=== PATIENT | male | born 1945 | race Caucasian/White ===

== ENCOUNTER → 2017-05-08 | Outpatient (CLI) | payer MEDICARE, BC ==
--- NOTE | 2017-05-08 11:47 | US ---
EXAMINATION TYPE: US kidneys/renal and bladder DATE OF EXAM: 05/08/2017 COMPARISON: NONE CLINICAL HISTORY: 71-year-old male N18.3 CKD. TECHNIQUE: Multiple sonographic images of the kidneys and bladder were obtained. FINDINGS: Right Kidney: 12.5 x 7.0 x 4.9 cm without hydronephrosis. There is a 2.0 cm cyst in the upper pole. Left Kidney: 9.8 x 4.0 x 2.7 cm with diffuse cortical thinning. No hydronephrosis. There is an exoph ytic 8 mm upper pole cortical cyst. No gross abnormality of the urinary bladder. Only the right ureteral jet is seen. IMPRESSION: 1. No hydronephrosis. 2. Asymmetric atrophy of the left kidney. 3. Only the right ureteral jet is seen.
== END | disposition home or self-care (01) ==
LOC: RADUSWWP 10:01
PROVIDERS: ATTEND Internal Medicine
DX: N26.1 Atrophy of kidney (terminal) (principal); N18.3 Chronic kidney disease, stage 3 (moderate)
CPT/HCPCS: 76770

== ENCOUNTER → 2019-06-26 | Outpatient (CLI) | payer MEDICARE, BC ==
--- NOTE | 2019-06-26 12:22 | CT ---
EXAMINATION TYPE: CT chest wo con DATE OF EXAM: 06/26/2019 COMPARISON: None HISTORY: Follow up scan, history of COPD CT DLP: 390.[address] of the chest was performed with lung and mediastinal window settings submitted. The la ck of contrast limits evaluation of the vascular, mediastinal and parenchymal structures including th e upper abdomen. LUNGS: The lungs are clear and free of infiltrate. No atelectasis. No pulmonary nodule or mass is de tected. No pleural effusion. Mild scattered subpleural fibrosis identified throughout both lung fiel ds. Minimal upper lobe emphysematous changes seen. MEDIASTINUM/ANGY: Thoracic aorta is of normal caliber with limited evaluation given lack of contrast . The heart is enlarged. Changes of prior CABG. No evidence for mediastinal mass. No lymph nodes greater than 1cm. UPPER ABDOMEN: Atrophic change left kidney. OTHER: No significant other abnormality. IMPRESSION: 1. Scattered subpleural fibrosis and minimal upper lobe emphysematous change.
== END | disposition home or self-care (01) ==
LOC: RADCTMAIN 11:29
PROVIDERS: ATTEND Internal Medicine
DX: J43.9 Emphysema, unspecified (principal); J84.10 Pulmonary fibrosis, unspecified; R06.09 Other forms of dyspnea; I27.20 Pulmonary hypertension, unspecified; G47.30 Sleep apnea, unspecified
CPT/HCPCS: 71250

== ENCOUNTER 2020-09-09 10:22 | Emergency (ER) | payer MEDICARE, BC ==
[2020-09-09 10:35] VITALS: RESP 18; TEMP 97.6
[2020-09-09 11:37] LABS: Basophils # (A) 0.1 k/uL (0-0.2); Basophils % (A) 1 %; Eosinophils # (A) 0.3 k/uL (0-0.7); Eosinophils % (A) 4 %; HCT 48.8 % (39.0-53.0); HGB 15.4 gm/dL (13.0-17.5); Lymphocytes # (A) 0.8 k/uL (1.0-4.8); Lymphocytes % (A) 10 %; MCH 31.7 pg (25.0-35.0); MCHC 31.5 g/dL (31.0-37.0); MCV 100.4 fL (80.0-100.0); Macrocytosis Slight; Mean Platelet Volume 8.6; Monocytes # (A) 0.6 k/uL (0-1.0); Monocytes % (A) 8 %; Neutrophils # (A) 5.8 k/uL (1.3-7.7); Neutrophils % (A) 76 %; Platelet Count 186 k/uL (150-450); RBC 4.86 m/uL (4.30-5.90); RDW 14.7 % (11.5-15.5); WBC 7.6 k/uL (3.8-10.6)
[2020-09-09 11:56] LABS: Albumin 4.4 g/dL (3.5-5.0); Calcium 9.2 mg/dL (8.4-10.2); Total Bilirubin 1.9 mg/dL (0.2-1.3); Total Protein 7.8 g/dL (6.3-8.2)
[2020-09-09 12:02] VITALS: BP 162/71; PULSE 72
--- NOTE | 2020-09-09 12:03 | XR ---
EXAMINATION TYPE: XR chest 2V DATE OF EXAM: 09/09/2020 COMPARISON: CT chest June 26, 2019 HISTORY: CHF and COPD. TECHNIQUE: Frontal and lateral views of the chest are obtained. FINDINGS: There is chronic emphysematous and parenchymal change without suspicious new focal air spa ce opacity, pleural effusion, or pneumothorax seen. The cardiac silhouette size remains enlarged. Ov erlying sternal wires and mediastinal clips are redemonstrated. The osseous structures are intact. IMPRESSION: Chronic changes and cardiomegaly without acute pulmonary process.
--- NOTE | 2020-09-09 12:20 | ED ---
General Adult HPI - General Chief complaint: Urogenital Stated complaint: Urinary issues Time Seen by Provider: 09/09/20 10:39 Source: patient, RN notes reviewed Mode of arrival: ambulatory Limitations: no limitations - History of Present Illness Initial comments: 74-year-old male with a past medical history of CAD, COPD, hypertension presents to the emergency department for a chief complaint of leg and scrotal swelling. Patient states he has had leg swelling that is worsening over the past 3 weeks. States it is going up his legs into his scrotum making it difficult to urinate initially. Patient reports that he was at [facility] and did have an ultrasound of his heart. He does believe he has a degree of heart failure. He was given IV Lasix and apparently lost 20 pounds in 5 days. States he has been taking Lasix outpatient however the swelling in his legs does not seem to be improving. He denies chest pain or shortness of breath. Patient has no other complaints at this time including shortness of breath, chest pain, a bdominal pain, nausea or vomiting, headache, or visual changes. - Related Data Home Medications Medication Instructions Recorded Confirmed Albuterol Sulfate [Ventolin HFA] 1 - 2 puff INHALATION RT-Q6H PRN 09/09/20 09/09/20 Allopurinol [Zyloprim] 100 mg PO DAILY 09/09/20 09/09/20 Atorvastatin [Lipitor] 40 mg PO HS 09/09/20 09/09/20 Calcitriol [Rocaltrol] 0.25 mcg PO MOSA 09/09/20 09/09/20 Ergocalciferol [Vitamin D2] 50,000 unit PO Q14D 09/09/20 09/09/20 Fluticasone/Vilanterol [Breo 1 puff INHALATION RT-DAILY 09/09/20 09/09/20 Ellipta 100-25 Mcg Inhaler] Furosemide [Lasix] 40 mg PO BID 09/09/20 09/09/20 Metoprolol Tartrate [Lopressor] 50 mg PO BID 09/09/20 09/09/20 Montelukast [Singulair] 10 mg PO HS 09/09/20 09/09/20 Nitroglycerin Sl Tabs [Nitrostat] 0.4 mg SUBLINGUAL Q5M PRN 09/09/20 09/09/20 Holland-3 Fatty Acids/Fish Oil [Fish 1 cap PO DAILY 09/09/20 09/09/20 Oil 1,000 mg Softgel] Quinapril HCl 40 mg PO DAILY 09/09/20 09/09/20 Vitamin E Acetate [Vitamin E] 200 unit PO DAILY 09/09/20 09/09/20 amLODIPine [Norvasc] 5 mg PO DAILY 09/09/20 09/09/20 hydrALAZINE HCL 25 mg PO BID 09/09/20 09/09/20 hydroCHLOROthiazide [Hydrodiuril] 25 mg PO DAILY 09/09/20 09/09/20 Previous Rx's Medication Instructions Recorded Cephalexin [Keflex] 500 mg PO Q6HR 10 Days #40 cap 09/09/20 Potassium Chloride ER [K-Dur 10] 10 meq PO DAILY #3 tab 09/09/20 Allergies Allergy/AdvReac Type Severity Reaction Status Date / Time Sulfa (Sulfonamide Allergy Rash/Hives Verified 09/09/20 11:37 Antibiotics) Review of Systems ROS Statement: Those systems with pertinent positive or pertinent negative responses have been documented in the HPI. ROS Other: All systems not noted in ROS Statement are negative. Past Medical History Past Medical History: Coronary Artery Disease (CAD), COPD, Hypertension History of Any Multi-Drug Resistant Organisms: None Reported Past Surgical History: Coronary Bypass/CABG, Hernia Repair Past Psychological History: No Psychological Hx Reported Smoking Status: Former smoker Past Alcohol Use History: Occasional Past Drug Use History: None Reported General Exam Limitations: no limitations General appearance: alert, in no apparent distress Head exam: Present: atraumatic, normocephalic, normal inspection Eye exam: Present: normal appearance, PERRL, EOMI. Absent: scleral icterus, conjunctival injection, periorbital swelling ENT exam: Present: normal exam, mucous membranes moist Neck exam: Present: normal inspection, full ROM. Absent: tenderness, meningismus, lymphadenopathy Respiratory exam: Present: normal lung sounds bilaterally. Absent: respiratory distress, wheezes, rales, rhonchi, stridor Cardiovascular Exam: Present: regular rate, normal rhythm, normal heart sounds. Absent: bradycardia, tachycardia, irregular rhythm GI/Abdominal exam: Present: soft, normal bowel sounds. Absent: distended, tenderness, guarding, rebound, rigid exam: Present: scrotal swelling, other (Loulou DANIELSON present for exam) Extremities exam: Present: other (1+ pitting edema noted in lower extremities.) Back exam: Absent: CVA tenderness (R), CVA tenderness (L) Neurological exam: Present: alert Course Vital Signs 09/09/20 09/09/20 09/09/20 10:31 11:58 13:40 Temperature 97.6 F 97.6 F Pulse Rate 95 72 72 Respiratory 18 18 18 Rate Blood Pressure 147/73 162/71 162/71 O2 Sat by Pulse 95 93 L 93 L Oximetry Medical Decision Making - Medical Decision Making Vitals are stable. CBC CMP is unremarkable. Creatinine of 1.43 consistent with patient states 3 chronic kidney disease. BNP elevated at 9650. Chest x-ray shows chronic changes without acute pulmonary process. Patient was given one dose of Lasix here in the emergency room. He is currently taking 40 mg twice daily. He will increase this to 3 times per day over the next 3 days. He will be supplemented with potassium. At this point he does not have any shortness of breath or fluid retention on chest x-ray patient is agreeable to discharge home with continuing his Lasix. Urinalysis does show evidence of infection and patient will be treated. Post void residual was 120, no significant retention patient will follow-up with his doctor in one to 2 days. - Lab Data Result diagrams: 09/09/20 11:12 09/09/20 11:12 Lab Results 09/09/20 09/09/20 09/09/20 Range/Units 11:12 11:12 11:12 WBC 7.6 (3.8-10.6) k/uL RBC 4.86 (4.30-5.90) m/uL Hgb 15.4 (13.0-17.5) gm/dL Hct 48.8 (39.0-53.0) % MCV 100.4 H (80.0-100.0) fL MCH 31.7 (25.0-35.0) pg MCHC 31.5 (31.0-37.0) g/dL RDW 14.7 (11.5-15.5) % Plt Count 186 (150-450) k/uL Neutrophils % 76 % Lymphocytes % 10 % Monocytes % 8 % Eosinophils % 4 % Basophils % 1 % Neutrophils # 5.8 (1.3-7.7) k/uL Lymphocytes # 0.8 L (1.0-4.8) k/uL Monocytes # 0.6 (0-1.0) k/uL Eosinophils # 0.3 (0-0.7) k/uL Basophils # 0.1 (0-0.2) k/uL Macrocytosis Slight Sodium 138 (137-145) mmol/L Potassium 5.0 (3.5-5.1) mmol/L Chloride 109 H (98-107) mmol/L Carbon Dioxide 18 L (22-30) mmol/L Anion Gap 11 mmol/L BUN 54 H (9-20) mg/dL Creatinine 1.43 H (0.66-1.25) mg/dL Est GFR (CKD-EPI)AfAm 56 (>60 ml/min/1.73 sqM) Est GFR (CKD-EPI)NonAf 48 (>60 ml/min/1.73 sqM) Glucose 107 H (74-99) mg/dL Calcium 9.2 (8.4-10.2) mg/dL Total Bilirubin 1.9 H (0.2-1.3) mg/dL AST 40 (17-59) U/L ALT 22 (4-49) U/L Alkaline Phosphatase 125 (38-126) U/L Troponin I 0.022 (0.000-0.034) ng/mL NT-Pro-B Natriuret Pep pg/mL Total Protein 7.8 (6.3-8.2) g/dL Albumin 4.4 (3.5-5.0) g/dL Urine Color Urine Appearance (Clear) Urine pH (5.0-8.0) Ur Specific [place] (1.001-1.035) Urine Protein (Negative) Urine Glucose (UA) (Negative) Urine Ketones (Negative) Urine Blood (Negative) Urine Nitrite (Negative) Urine Bilirubin (Negative) Urine Urobilinogen (<2.0) mg/dL Ur Leukocyte Esterase (Negative) Urine RBC (0-5) /hpf Urine WBC (0-5) /hpf Urine WBC Clumps (None) /hpf Urine Bacteria (None) /hpf 09/09/20 09/09/20 Range/Units 11:12 12:35 WBC (3.8-10.6) k/uL RBC (4.30-5.90) m/uL Hgb (13.0-17.5) gm/dL Hct (39.0-53.0) % MCV (80.0-100.0) fL MCH (25.0-35.0) pg MCHC (31.0-37.0) g/dL RDW (11.5-15.5) % Plt Count (150-450) k/uL Neutrophils % % Lymphocytes % % Monocytes % % Eosinophils % % Basophils % % Neutrophils # (1.3-7.7) k/uL Lymphocytes # (1.0-4.8) k/uL Monocytes # (0-1.0) k/uL Eosinophils # (0-0.7) k/uL Basophils # (0-0.2) k/uL Macrocytosis Sodium (137-145) mmol/L Potassium (3.5-5.1) mmol/L Chloride (98-107) mmol/L Carbon Dioxide (22-30) mmol/L Anion Gap mmol/L BUN (9-20) mg/dL Creatinine (0.66-1.25) mg/dL Est GFR (CKD-EPI)AfAm (>60 ml/min/1.73 sqM) Est GFR (CKD-EPI)NonAf (>60 ml/min/1.73 sqM) Glucose (74-99) mg/dL Calcium (8.4-10.2) mg/dL Total Bilirubin (0.2-1.3) mg/dL AST (17-59) U/L ALT (4-49) U/L Alkaline Phosphatase (38-126) U/L Troponin I (0.000-0.034) ng/mL NT-Pro-B Natriuret Pep 9650 pg/mL Total Protein (6.3-8.2) g/dL Albumin (3.5-5.0) g/dL Urine Color Yellow Urine Appearance Turbid (Clear) Urine pH 5.5 (5.0-8.0) Ur Specific [place] 1.017 (1.001-1.035) Urine Protein 1+ H (Negative) Urine Glucose (UA) Negative (Negative) Urine Ketones Negative (Negative) Urine Blood Large H (Negative) Urine Nitrite Positive (Negative) Urine Bilirubin Negative (Negative) Urine Urobilinogen <2.0 (<2.0) mg/dL Ur Leukocyte Esterase Large H (Negative) Urine RBC >182 H (0-5) /hpf Urine WBC >182 H (0-5) /hpf Urine WBC Clumps Many H (None) /hpf Urine Bacteria Moderate H (None) /hpf Disposition Clinical Impression: Urinary tract infection, Fluid retention in legs Disposition: HOME SELF-CARE Condition: Good Instructions (If sedation given, give patient instructions): Urinary Tract Infection in Men (ED) Additional Instructions: You may take your Lasix 3 times daily for the next 3 days. Take potassium for the next 3 days as well. After the 3 days, resume the Lasix twice daily. Follow up with your doctor. Return to the emergency room for any worsening symptoms. Prescriptions: Potassium Chloride ER [K-Dur 10] 10 meq PO DAILY #3 tab Cephalexin [Keflex] 500 mg PO Q6HR 10 Days #40 cap Is patient prescribed a controlled substance at d/c from ED?: No Referrals: Ganesh Mccracken MD [Primary Care Provider] - 1-2 days Time of Disposition: 13:23
[2020-09-09 13:06] LABS: Appearance,Urine Turbid (Clear); Bacteria,Urine Moderate /hpf; Bilirubin,Urine Negative (Negative); Blood,Urine Large (Negative); Color,Urine Yellow; Glucose,Urine (UA) Negative (Negative); Ketones,Urine Negative (Negative); Leukocyte Esterase,Urine Large (Negative); Nitrite,Urine Positive (Negative); PH, Urine 5.5 (5.0-8.0); Protein,Urine 1+ (Negative); RBC,Urine >182 /hpf (0-5); Specific Gravity,Urine 1.017 (1.001-1.035); Urobilinogen,Urine <2.0 mg/dL (<2.0); WBC,Urine >182 /hpf (0-5)
[2020-09-09] MEDS ORDERED: FUROSEMIDE 10 MG/ML 4 ML VIAL IV STA (13:22)
[2020-09-09] MEDS ORDERED: cefTRIAXone IN SWFI 1,000 MG/10 ML SYRINGE IVP STA (13:22)
== END 2020-09-09 13:45 | disposition home or self-care (01) ==
LOC: EC 10:22
DX: N39.0 Urinary tract infection, site not specified (principal); R60.0 Localized edema; R79.89 Other specified abnormal findings of blood chemistry; I10 Essential (primary) hypertension; J44.9 Chronic obstructive pulmonary disease, unspecified; I25.10 Atherosclerotic heart disease of native coronary artery without angina pectoris; Z79.899 Other long term (current) drug therapy; Z79.51 Long term (current) use of inhaled steroids; Z88.2 Allergy status to sulfonamides; Z95.1 Presence of aortocoronary bypass graft; Z87.891 Personal history of nicotine dependence
CPT/HCPCS: 51798; 36415; 93005; 83880; 80053; 84484; 85025; 81001; 87086; 71046; 99284; 96374; 96375; J1940; J0696